=== PATIENT | female | born 1975 | race Caucasian/White ===

== ENCOUNTER → 2017-04-25 | Outpatient (CLI) | payer BC ==
[~2017-04-25] MED LIST: DEXL60CA2 PO; DICY10CA53 PO
--- NOTE | 2017-04-25 11:24 | RAD ---
Three-view right foot radiographs 04/25/2017 Clinical history: Right foot pain and numbness for one month. AP, lateral and oblique digital radiographs of the right foot were obtained. No previous studies are available for comparison. Mild to moderate hallux valgus deformity is noted. Two bone screws are seen within the distal diaphysis of the right first metatarsal. Mild to moderate degenerative changes are seen throughout the interphalangeal joints and first MTP joint of the right foot. No fracture or dislocation of the right foot is seen. Mild enthesophyte formation is seen involving the posterior plantar aspect of the right calcaneus. Impression: Degenerative changes are seen involving the right foot as outlined above. No acute osseous abnormality is seen.
== END | disposition home or self-care (01) ==
LOC: DXRADRC 08:00
PROVIDERS: ATTEND Physician Assistant Medical
DX: M20.11 Hallux valgus (acquired), right foot (principal); M79.671 Pain in right foot; R20.0 Anesthesia of skin
CPT/HCPCS: 73630

== ENCOUNTER → 2019-11-16 | Outpatient (CLI) | payer BC ==
--- NOTE | 2019-11-16 16:42 | RAD ---
EXAM: Chest, 2 views. HISTORY: Chest pain. COMPARISON: None. FINDINGS: 2 views of the chest are obtained. There is no infiltrate, pleural effusion or pneumothorax. The heart is normal in size. IMPRESSION: No acute pulmonary finding. Electronically signed by: Luna Allen MD (11/16/2019 4:40 PM) [email or web address]
== END | disposition home or self-care (01) ==
LOC: PMG 14:31
PROVIDERS: ATTEND Registered Nurse
DX: R05 Cough (principal)
CPT/HCPCS: 71046